=== PATIENT | male | born 1980 | race Caucasian/White ===

== ENCOUNTER 2017-11-05 15:48 | Emergency (ER) | payer OTHER ==
[~2017-11-05] VITALS: Ht 177.8 cm; Wt 117.9 kg
[~2017-11-05 15:48] MED LIST: ACET-787 PO; IBUP-2213 PO
[2017-11-05 15:55] VITALS: BP 146/94
--- NOTE | 2017-11-05 16:00 | NUR ---
Patient ambulated to bed 6. RN evaluating patient at bedside.
--- NOTE | 2017-11-05 16:01 | NUR ---
Dr. Grigsby evaluating patient at bedside.
--- NOTE | 2017-11-05 16:04 | NUR ---
Rash to sheila lower legs and upper arms x 3 days, +pruritis, denies n/v/d/fevers. States "they burn in sensation" Denies new meds/food med hx:sciatica rx: norco, ibuprofen,
[2017-11-05 16:52] VITALS: BP 138/83
--- NOTE | 2017-11-05 16:52 | NUR ---
Patient discharged with v/s stable. Written and verbal after care instructions given and explained. Patient alert, oriented and verbalized understanding of instructions. Ambulatory with steady gait. All questions addressed prior to discharge. ID band removed. Patient advised to follow up with PMD. Rx of Bactrim, Hibiclens, Ibuprofen, Mupiroccin given. Patient educated on indication of medication including possible reaction and side effects. Opportunity to ask questions provided and answered.
== END 2017-11-05 16:52 | disposition home or self-care (01) ==
LOC: MED 15:48
DX: L73.8 Other specified follicular disorders (principal); B95.62 Methicillin resistant Staphylococcus aureus infection as the cause of diseases classified elsewhere
CPT/HCPCS: 99283

== ENCOUNTER 2017-12-26 06:40 | Emergency (ER) | payer OTHER ==
[~2017-12-26] VITALS: Ht 177.8 cm; Wt 120.2 kg
[2017-12-26 06:42] VITALS: BP 102/80
--- NOTE | 2017-12-26 06:42 | NUR ---
PT AMBULATED WITH ALDRIDGE ASSIST TO BED 11 WITH VSS.
--- NOTE | 2017-12-26 07:00 | NUR ---
PATIENT PRESENTS TO ED WITH chronic pain in lower back that radiates down his right leg. PT STATES he is out of pain medicine. patient also complaining of bug bites on his hand. DENIES N/V/D; SKIN IS PINK/WARM/DRY; AAOX4 WITH EVEN AND STEADY GAIT; LUNGS CLEAR BL; HR EVEN AND REGULAR; PT DENIES ANY FEVER, CP, SOB, OR COUGH AT THIS TIME; PATIENT STATES PAIN OF 8/10 AT THIS TIME; VSS; PATIENT POSITIONED FOR COMFORT; HOB ELEVATED; BEDRAILS UP X2; BED DOWN. ER MD MADE AWARE OF PT STATUS.
--- NOTE | 2017-12-26 07:38 | NUR ---
Patient left without discharge instructions or rx.
== END 2017-12-26 07:38 | disposition home or self-care (01) ==
LOC: MED 06:40
DX: S60.561A Insect bite (nonvenomous) of right hand, initial encounter (principal); S60.562A Insect bite (nonvenomous) of left hand, initial encounter; G89.29 Other chronic pain; M54.5 Low back pain; Z79.899 Other long term (current) drug therapy; W57.XXXA Bitten or stung by nonvenomous insect and other nonvenomous arthropods, initial encounter; Y93.89 Activity, other specified; Y92.89 Other specified places as the place of occurrence of the external cause; Y99.8 Other external cause status
CPT/HCPCS: 99281

== ENCOUNTER 2018-05-11 16:11 | Emergency (ER) | payer OTHER ==
[~2018-05-11] VITALS: Ht 177.8 cm; Wt 117.9 kg
[2018-05-11 16:42] VITALS: BP 152/112
--- NOTE | 2018-05-11 18:49 | NUR ---
PATIENT AMBULATED TO ER BED 10
--- NOTE | 2018-05-11 18:51 | NUR ---
C/O L MOLAR PAIN, RADIATING TO L JAW, X1 WEEK PROGRESSIVELY WORSENING TODAY. WENT TO DENTIST FOR XR, WAS TOLD TODAY THAT HE HAD AN INFECTION HX SCIATICA, BACK SURGERY RX NORCO 2 HRS AGO, OTC 800MG MOTRIN 30 MINS AGO, NO RELIEF
--- NOTE | 2018-05-11 19:17 | NUR ---
REPORT GIVEN TO KRISTOPHER COON
[2018-05-11] MEDS ORDERED: fentaNYL 0.05 MG/ML VIAL IM ONE (19:50)
[2018-05-11] MEDS ORDERED: cefTRIAXone 1,000 MG in LIDOCAINE MPF 1% - 5 mL VIAL 2.1 ML IM ONE (19:50)
[2018-05-11 20:23] VITALS: BP 152/112
--- NOTE | 2018-05-11 20:23 | NUR ---
Patient discharged with v/s stable. Written and verbal after care instructions given and explained. Patient alert, oriented and verbalized understanding of instructions. Ambulatory with steady gait. All questions addressed prior to discharge. ID band removed. Patient advised to follow up with PMD. Rx of MORPHINE AND AMOXICILLIN given. Patient educated on indication of medication including possible reaction and side effects. Opportunity to ask questions provided and answered.
== END 2018-05-11 20:23 | disposition home or self-care (01) ==
LOC: MED 16:11
DX: K04.7 Periapical abscess without sinus (principal); Z79.891 Long term (current) use of opiate analgesic; Z79.1 Long term (current) use of non-steroidal anti-inflammatories (NSAID)
CPT/HCPCS: 96372; 99283; J0696; J2001; J3010

== ENCOUNTER 2019-02-18 16:10 | Emergency (ER) | payer OTHER ==
[~2019-02-18] VITALS: Ht 177.8 cm; Wt 117.9 kg
[2019-02-18 16:56] VITALS: BP 169/119
--- NOTE | 2019-02-18 17:50 | NUR ---
PT TAKEN TO CHAIR B.
--- NOTE | 2019-02-18 18:11 | NUR ---
PT TO ED WITH L SHOULDER PAIN LASTING ABOUT 1 WEEK. DENIES INJURY/TRAUMA. ROM PRESENT, LIMITED DUE TO PAIN. NO OBVIOUS DEFORMITY. IN CHAIR FOR EVAL.
[2019-02-18 18:59] VITALS: BP 159/97
--- NOTE | 2019-02-18 18:59 | NUR ---
Patient discharged with v/s stable. Written and verbal after care instructions given and explained. Patient alert, oriented and verbalized understanding of instructions. Ambulatory with steady gait. All questions addressed prior to discharge. ID band removed. Patient advised to follow up with PMD. Rx of NPAORXEN given. Patient educated on indication of medication including possible reaction and side effects. Opportunity to ask questions provided and answered.
== END 2019-02-18 18:59 | disposition home or self-care (01) ==
LOC: MED 16:10
DX: S46.812A Strain of other muscles, fascia and tendons at shoulder and upper arm level, left arm, initial encounter (principal); Z98.890 Other specified postprocedural states; Z79.899 Other long term (current) drug therapy; Z02.89 Encounter for other administrative examinations; Y04.0XXA Assault by unarmed brawl or fight, initial encounter; Y93.89 Activity, other specified; Y92.89 Other specified places as the place of occurrence of the external cause; Y99.8 Other external cause status
CPT/HCPCS: 73020; 99283

== ENCOUNTER 2019-06-06 13:42 | Emergency (ER) | payer OTHER ==
[~2019-06-06] VITALS: Ht 175.3 cm; Wt 124.3 kg
[2019-06-06 13:58] VITALS: BP 153/73
[2019-06-06 15:22] VITALS: BP 145/73
== END 2019-06-06 15:24 | disposition home or self-care (01) ==
LOC: MED 13:42
DX: K21.9 Gastro-esophageal reflux disease without esophagitis (principal); Z98.890 Other specified postprocedural states; Z79.899 Other long term (current) drug therapy
CPT/HCPCS: 93005; 99283

== ENCOUNTER 2020-09-24 23:13 | Emergency (ER) | payer OTHER ==
[~2020-09-24] VITALS: Ht 177.8 cm; Wt 122.5 kg
[~2020-09-24 23:13] MED LIST changes: -ACET-787 PO; +HYDR-5191 PO
[2020-09-24 23:25] VITALS: BP 165/104
[2020-09-24] MEDS ORDERED: IBUPROFEN 800 MG TAB PO ONE (23:50)
[2020-09-25] MEDS ORDERED: KETOROLAC 60 MG/2 ML VIAL IM ONE (00:20)
[2020-09-25] MEDS ORDERED: ACETAMINOPHEN EXTRA STRENGTH 500 MG TAB PO ONE (00:20)
[2020-09-25] MEDS ORDERED: AMOX500C25 PO (00:58)
== END 2020-09-25 01:15 | disposition home or self-care (01) ==
LOC: MED 23:13
DX: U07.1 COVID-19 (principal)
CPT/HCPCS: 87426; 87804; 96372; 99283; J1885

== ENCOUNTER 2020-09-27 06:06 | Emergency (ER) | payer OTHER ==
[~2020-09-27] VITALS: Ht 177.8 cm; Wt 124.7 kg
[2020-09-27 06:06] VITALS: BP 133/92
[~2020-09-27 06:06] MED LIST changes: +AMOX500C25 PO
[2020-09-27] MEDS ORDERED: KETOROLAC 60 MG/2 ML VIAL IM ONE (06:50)
[2020-09-27] MEDS ORDERED: KETOROLAC 30 MG/ML VIAL IVP ONE (06:50)
[2020-09-27] MEDS ORDERED: IBUP-2213 PO (06:55)
[2020-09-27] MEDS ORDERED: ACET-8386 PO (06:55)
[2020-09-27 08:40] VITALS: BP 133/92
== END 2020-09-27 08:41 | disposition home or self-care (01) ==
LOC: MED 06:06
DX: U07.1 COVID-19 (principal); Z79.899 Other long term (current) drug therapy
CPT/HCPCS: 71045; 96372; 99283; J1885

== ENCOUNTER 2021-06-20 05:38 | Emergency (ER) | payer OTHER ==
[~2021-06-20] VITALS: Ht 177.8 cm; Wt 131.5 kg
[~2021-06-20 05:38] MED LIST changes: +ACET-8386 PO
[2021-06-20 05:52] VITALS: BP 154/101
--- NOTE | 2021-06-20 05:52 | NUR ---
patient ambulated to bed 2 with a steady gait
--- NOTE | 2021-06-20 06:05 | NUR ---
MD AGUIRRE ASSESSING PATIENT
[2021-06-20] MEDS ORDERED: KETOROLAC 30 MG/ML VIAL IM ONE (06:10)
[2021-06-20] MEDS ORDERED: AMPICILLIN/SULBACTAM 1.5 GM VIAL IM ONE (06:10)
[2021-06-20] MEDS ORDERED: IBUP-2213 PO (06:14)
[2021-06-20] MEDS ORDERED: ACET-8386 PO (06:14)
[2021-06-20] MEDS ORDERED: AMOX1TAB8 PO (06:14)
--- NOTE | 2021-06-20 06:20 | NUR ---
40/M BIB SELF C/O RIGHT TOP TOOTHACHE X2DAYS. PATIENT STATED HAVING INCREASED SWELLING ON FACE. PATIENT STATED THAT PAIN IS RAD TO THE EAR AND HEAD, PAIN IS 9/10 INTERMITTENT. PATIENT STATED HE HAD DIFFICULTY EATING DUE TO THE PAIN. DENIES N/V/D/CP/SOB AT THIS TIME. PMHX HTN, SCIATICA, BACK SURGERY MEDS [facility]
--- NOTE | 2021-06-20 07:19 | NUR ---
REPORT GIVEN TO KRISTOPHER AL. TRANSFER OF CARE.
[2021-06-20 07:40] VITALS: BP 122/68
--- NOTE | 2021-06-20 07:41 | NUR ---
Patient discharged with v/s stable. Written and verbal after care instructions given and explained. Patient alert, oriented and verbalized understanding of instructions. Ambulatory with steady gait. All questions addressed prior to discharge. ID band removed. Patient advised to follow up with PMD. Rx of NORCO, AMOXICILLIN given. Patient educated on indication of medication including possible reaction and side effects. Opportunity to ask questions provided and answered.
== END 2021-06-20 07:41 | disposition home or self-care (01) ==
LOC: MED 05:38
DX: K04.7 Periapical abscess without sinus (principal); Z79.899 Other long term (current) drug therapy
CPT/HCPCS: 96372; 99284; J0295; J1885